=== PATIENT | female | born 1995 | race Caucasian/White ===

== ENCOUNTER 2017-03-17 21:07 | Emergency (ER) | payer OTHER, SELFPAY ==
[2017-03-17] MEDS ORDERED: Ketorolac Tromethamine 30 MG/ML VIAL ONE (22:42)
[2017-03-17] MEDS ORDERED: Prochlorperazine 10 MG/2 ML VIAL ONE (22:42)
[2017-03-17] MEDS ORDERED: diphenhydrAMINE 50 MG/ML VIAL ONE (22:42)
[2017-03-17] MEDS ORDERED: Promethazine HCl 25 MG/ML VIAL ONE (22:46)
== END 2017-03-18 01:11 | disposition home or self-care (01) ==
LOC: SCSER 21:07
DX: R51 Headache (principal); H92.03 Otalgia, bilateral; J45.909 Unspecified asthma, uncomplicated
CPT/HCPCS: 96365; 96366; 96368; 96375; J0780; J1200; J1885; J2550